=== PATIENT | male | born 1950 | race Caucasian/White ===

== ENCOUNTER 2017-11-26 14:06 | Emergency (ER) | payer OTHER ==
[~2017-11-26] VITALS: Ht 177.8 cm; Wt 85.0 kg
[2017-11-26 14:10] VITALS: BP 150/79; PULSE 66; RESP 16; TEMP 97.6; O2SAT 98
--- NOTE | 2017-11-26 15:52 | PD ---
HPI Chief Complaint: Injury Time Seen by Provider: 15:44 Travel History International Travel<30 days: No Contact w/Intl Traveler<30days: No Traveled to known affect area: No History of Present Illness HPI 66-year-old male presents for evaluation of head injury. This morning the patient tripped in a parking lot and fell, striking the left side of his head and face against a garden curb. No loss of consciousness. He's been having progressively worsening frontal headache and left-sided facial pain since then. The pain is aching pain which is constant, worse when he opens his jaw. He was seen at an urgent care center and sent here for CT imaging. He endorses slight lightheadedness. Denies confusion, amnesia, nausea, vomiting, neck or back pain. He did sustain an abrasion to his left knee with mild pain but denies any range of motion limitation or difficulty ambulating. He is not on any anticoagulation. No other complaints at this time. PFSH Past Medical History Hx Anticoagulant Therapy: No Social History Alcohol Use: No Tobacco Use: No Allergies-Medications (Allergen,Severity, Reaction): Coded Allergies: No Known Allergies (Unverified , 11/26/17) Reported Meds & Prescriptions Reported Meds & Active Scripts Active Reported Levetiracetam 1,000 Mg Tab Unknown Dose PO DAILY Lisinopril 20 Mg Tab 20 Mg PO DAILY Review of Systems Except as stated in HPI: all other systems reviewed are Neg Physical Exam Narrative GENERAL: Well-developed well-nourished male in no acute distress SKIN: Warm and dry. Superficial abrasion to the anterior left knee. HEAD: Atraumatic. Normocephalic. EYES: Pupils equal and round. No scleral icterus. No injection or drainage. ENT: No nasal bleeding or discharge. Mucous membranes pink and moist. Tender to palpation left temporomandibular joint and overlying the left maxilla and zygomatic arch. There is no bruising or soft tissue swelling or obvious deformity. There is pain with opening and closing of the jaw. NECK: Trachea midline. No JVD. CARDIOVASCULAR: Regular rate and rhythm. No murmur appreciated. RESPIRATORY: No accessory muscle use. Clear to auscultation. Breath sounds equal bilaterally. GASTROINTESTINAL: Abdomen soft, non-tender, nondistended. Hepatic and splenic margins not palpable. MUSCULOSKELETAL: No obvious deformities. Skin as above with no reproducible bony tenderness to palpation. NEUROLOGICAL: Awake and alert. No obvious cranial nerve deficits. Motor grossly within normal limits. Normal speech. Data Data Last Documented VS Vital Signs Date Time Temp Pulse Resp B/P (MAP) Pulse Ox O2 Delivery O2 Flow Rate FiO2 11/26/17 14:10 97.6 66 16 150/79 (102) [address] Brain W/O Iv Contrast(Rout) (11/26/17 ) Ct Facial Bones W/O Iv Cont (11/26/17 ) Acetamin-Codeine 300-30 Mg (Tylenol-Code (11/26/17 16:00) Ondansetron Odt (Zofran Odt) (11/26/17 16:00) MDM Medical Decision Making Medical Screen Exam Complete: Yes Emergency Medical Condition: Yes Medical Record Reviewed: Yes Differential Diagnosis Facial contusion, closed head injury, fracture, intracranial hemorrhage Narrative Course CT imaging of the brain and facial bones will be obtained. Imaging studies are negative. The patient is stable for discharge. Diagnosis Primary Impression: Closed head injury Med/Other Pt SpecificInfo: No Change to Meds Disposition: 01 DISCHARGE HOME Condition: Stable Naldo Bro Nov 26, 2017 15:52
[2017-11-26] MEDS ORDERED: LEVE10003 PO (15:58)
[2017-11-26] MEDS ORDERED: LISI-515 PO (15:58)
[2017-11-26] MEDS ORDERED: ONDANSETRON ODT 4 MG TAB PO ONE (16:00)
[2017-11-26] MEDS ORDERED: ACETAMINOPHEN/CODEINE 300 MG/30 MG TAB PO ONE (16:00)
--- NOTE | 2017-11-26 16:30 | RADRPT ---
EXAM DATE/TIME: 11/26/2017 16:16 [facility] COMPARISON: No previous studies available for comparison. INDICATIONS : Trauma, fall. RADIATION DOSE: 60.21 CTDIvol (mGy) MEDICAL HISTORY : Hypertension. SURGICAL HISTORY : None. ENCOUNTER: Initial ACUITY: 1 day PAIN SCALE: 5/10 LOCATION: Left cranial TECHNIQUE: Multiple contiguous axial images were obtained of the head. Using automated exposure control and adj ustment of the mA and/or kV according to patient size, radiation dose was kept as low as reasonably a chievable to obtain optimal diagnostic quality images. DICOM format image data is available electro nically for review and comparison. FINDINGS: CEREBRUM: The ventricles are normal for age. No evidence of midline shift, mass lesion, hemorrhage or acute in farction. No extra-axial fluid collections are seen. POSTERIOR FOSSA: The cerebellum and brainstem are intact. The 4th ventricle is midline. The cerebellopontine angle i s unremarkable. EXTRACRANIAL: The visualized portion of the orbits is intact. SKULL: The calvaria is intact. No evidence of skull fracture. CONCLUSION: Negative trauma CT Jose Rosa MD on November 26, 2017 at 16:26 Board Certified Radiologist. This report was verified electronically.
--- NOTE | 2017-11-26 16:33 | RADRPT ---
EXAM DATE/TIME: 11/26/2017 16:16 [facility] COMPARISON: No previous studies available for comparison. INDICATIONS : Trauma, fall. RADIATION DOSE: 34.90 CTDIvol (mGy) MEDICAL HISTORY : Hypertension. SURGICAL HISTORY : None. ENCOUNTER: Initial ACUITY: 1 day PAIN SCORE: 0/10 LOCATION: facial TECHNIQUE: Volumetric scanning of the facial bones was performed. Using automated exposure control and adjustme nt of the mA and/or kV according to patient size, radiation dose was kept as low as reasonably achiev able to obtain optimal diagnostic quality images. DICOM format image data is available electronicall y for review and comparison. FINDINGS: ORBITS: The orbital and infraorbital osseous structures are intact. The retroconal structures have a normal configuration. No radiopaque foreign bodies are seen. NASAL BONE: The nasal bone and maxillary spine are intact ZYGOMATIC ARCHES: Symmetric without evidence of fracture. SINUSES: The maxillary, ethmoid and frontal sinuses are intact. No air-fluid levels seen. A small retention c yst in the left maxillary sinus. NASAL CAVITY: The nasal septum is intact and midline. The lacrimal ducts are intact. SOFT TISSUES: No radiopaque foreign bodies seen. No soft-tissue swelling is seen. INTRACRANIAL: No intracranial air seen. CRIBIFORM PLATE: Grossly intact. CONCLUSION: Negative trauma CT Jose Rosa MD on November 26, 2017 at 16:27 Board Certified Radiologist. This report was verified electronically.
[2017-11-26 17:35] VITALS: RESP 16
== END 2017-11-26 17:36 | disposition home or self-care (01) ==
LOC: PHEFT 14:06
DX: S09.90XA Unspecified injury of head, initial encounter (principal); S80.212A Abrasion, left knee, initial encounter; W01.0XXA Fall on same level from slipping, tripping and stumbling without subsequent striking against object, initial encounter; Y92.481 Parking lot as the place of occurrence of the external cause
CPT/HCPCS: 70450; 70486